=== PATIENT | male | born 1960 | race Two or more races ===

== ENCOUNTER 2020-06-08 17:09 | Emergency (ER) | payer SELFPAY ==
[~2020-06-08] VITALS: Ht 177.8 cm; Wt 100.0 kg
[2020-06-08 17:14] VITALS: BP 142/92
== END 2020-06-08 17:15 | disposition left against medical advice (07) ==
LOC: ER 17:09
DX: F10.10 Alcohol abuse, uncomplicated (principal); Z53.21 Procedure and treatment not carried out due to patient leaving prior to being seen by health care provider; Y90.9 Presence of alcohol in blood, level not specified